=== PATIENT | male | born 1950 | race Caucasian/White ===

== ENCOUNTER 2018-01-23 08:02 | Emergency (ER) | payer MEDICARE, OTHER ==
[2018-01-23] MEDS ORDERED: ACETAMINOPHEN WITH CODEINE #3 TABLET PO ONE (08:37)
[2018-01-23] MEDS ORDERED: ONDANSETRON 4 MG TAB.RAPDIS PO ONE (08:38)
[2018-01-23] MEDS ORDERED: CYCLOBENZAPRINE HCL 10 MG TABLET PO ONE (08:38)
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
[2018-01-23 10:19] LABS: APPEARANCE,URINE CLEAR; BILIRUBIN,URINE NEGATIVE (NEGATIVE); COLOR,URINE YELLOW; GLUCOSE, URINE NEGATIVE (NEGATIVE); KETONES,URINE NEGATIVE (NEGATIVE); LEUKOCYTE ESTERASE,URINE NEGATIVE (NEGATIVE); NITRITE,URINE NEGATIVE (NEGATIVE); PROTEIN,URINE NEGATIVE (NEGATIVE); URINE SPECIFIC GRAVITY 1.019; UROBILINOGEN,URINE NEGATIVE mg/dL (<2.0)
[2018-01-23 10:33] VITALS: BP 148/76
== END 2018-01-23 10:31 | disposition home or self-care (01) ==
LOC: ER 08:02
DX: G89.29 Other chronic pain (principal); M54.9 Dorsalgia, unspecified; M62.830 Muscle spasm of back; I10 Essential (primary) hypertension; J44.9 Chronic obstructive pulmonary disease, unspecified
CPT/HCPCS: 99284; 81001; A9270 ×3; S0119